=== PATIENT | female | born 1950 | race African-American/Black ===

== ENCOUNTER 2023-06-29 10:28 | Emergency (ER) | payer MEDICARE ==
[~2023-06-29] VITALS: Ht 157.5 cm; Wt 78.2 kg
[2023-06-29 10:32] VITALS: TEMP 98.6
[2023-06-29] MEDS ORDERED: Ibuprofen 600 MG TAB PO ONE (11:45)
[2023-06-29 12:38] VITALS: BP 120/78; PULSE 88
== END 2023-06-29 12:39 | disposition home or self-care (01) ==
LOC: COL.ER 10:28
DX: S09.90XA Unspecified injury of head, initial encounter (principal); S01.81XA Laceration without foreign body of other part of head, initial encounter; S16.1XXA Strain of muscle, fascia and tendon at neck level, initial encounter; W18.30XA Fall on same level, unspecified, initial encounter; W22.8XXA Striking against or struck by other objects, initial encounter